=== PATIENT | female | born 1980 | race African-American/Black ===

== ENCOUNTER 2023-01-27 19:52 | Emergency (ER) | payer MEDICAID, OTHER ==
[~2023-01-27] VITALS: Ht 167.6 cm; Wt 77.0 kg
[2023-01-27 19:53] VITALS: BP 156/82; O2SAT 100
[2023-01-27] MEDS ORDERED: DIPHENHYDRAMINE 25MG CAPSULE PO ONE (21:00)
[2023-01-27] MEDS ORDERED: DIPH25CA83 MT (21:05)
[2023-01-27] MEDS ORDERED: HYDR453.3 TP (21:05)
[2023-01-27 22:28] VITALS: PULSE 96; RESP 16; TEMP 98.8
== END 2023-01-27 22:31 | disposition home or self-care (01) ==
LOC: ER 19:52
DX: S40.861A Insect bite (nonvenomous) of right upper arm, initial encounter (principal); I10 Essential (primary) hypertension; W57.XXXA Bitten or stung by nonvenomous insect and other nonvenomous arthropods, initial encounter; Y93.89 Activity, other specified; Y92.89 Other specified places as the place of occurrence of the external cause; Y99.8 Other external cause status
CPT/HCPCS: 99283; 81025; Q0163

== ENCOUNTER 2023-03-02 02:54 | Emergency (ER) | payer OTHER ==
[~2023-03-02] VITALS: Ht 170.2 cm; Wt 91.0 kg
[~2023-03-02 02:54] MED LIST: DIPH25CA83 MT; HYDR453.3 TP
[2023-03-02 03:07] VITALS: O2SAT 98
[2023-03-02 04:00] LABS: BASOPHILS % 0.9 % (0.0-2.0); EOSINOPHILS % 1.6 % (0.0-5.0); HEMATOCRIT. 31.8 % (36.0-48.0); HEMOGLOBIN. 10.1 g/dL (12.0-16.0); LYMPHOCYTES % 28.5 % (20.0-50.0); MEAN CORPUSCULAR HGB CONC 31.7 g/dL (31.0-37.0); MEAN CORPUSCULAR VOLUME 75.7 fL (81.0-99.0); MEAN PLATELET VOLUME 8.5 fl (7.4-10.4); MONOCYTES % 6.8 % (2.0-8.0); NEUTROPHILS % 62.2 % (40.0-76.0); PLATELET 305 x1000/uL (130-400); RED BLOOD CELL COUNT 4.19 mill/uL (4.2-5.4); RED CELL DISTRIBUTION WIDTH 23.2 % (11.6-14.6); WHITE BLOOD COUNT 7.2 x1000/uL (4.5-11.0)
[2023-03-02 04:03] LABS: ADD RBC MORPHOLOGY YES; DIFFERENTIAL COMMENT 1
[2023-03-02 04:15] LABS: ALANINE AMINOTRANSFERASE 26 IU/L (10-49); ALBUMIN 3.7 g/dL (3.2-4.8); ASPARTATE AMINOTRANSFERASE 33 IU/L (<34); BILIRUBIN TOTAL 1.1 mg/dL (0.1-1.0); CALCIUM 8.9 mg/dL (8.7-10.4); CARBON DIOXIDE 28 mEq/L (21-32); CHLORIDE 108 mEq/L (98-107); CREATININE 0.9 mg/dL (0.6-1.0); GLUCOSE 90 mg/dL (70-105); POTASSIUM 3.4 mEq/L (3.5-5.1); PROTEIN TOTAL 7.8 g/dL (6.0-8.3); SODIUM 141 mEq/L (136-145); TROPONIN I HIGH SENSITIVITY 6 ng/L (3.0-34); UREA NITROGEN BLOOD 10 mg/dL (9-23)
[2023-03-02 04:46] LABS: PLATELET ESTIMATE NORMAL
[2023-03-02 04:47] LABS: ANISOCYTOSIS 1+
[2023-03-02] MEDS ORDERED: AZIT250T12 MT (06:34)
[2023-03-02 09:30] VITALS: BP 135/102; PULSE 89; RESP 17
== END 2023-03-02 10:00 | disposition home or self-care (01) ==
LOC: ER 02:54
DX: J18.9 Pneumonia, unspecified organism (principal); I10 Essential (primary) hypertension; Z68.31 Body mass index [BMI] 31.0-31.9, adult; Z88.8 Allergy status to other drugs, medicaments and biological substances
CPT/HCPCS: 36415; 71045; 80053; 83880; 84484; 85025; 85379; 93005; 99285

== ENCOUNTER 2023-04-11 12:18 | Emergency (ER) | payer OTHER ==
[~2023-04-11] VITALS: Ht 170.2 cm; Wt 91.0 kg
[~2023-04-11 12:18] MED LIST changes: +AZIT250T12 MT
[2023-04-11 12:42] VITALS: BP 157/100; PULSE 102; RESP 16; TEMP 98.4; O2SAT 100
[2023-04-11] MEDS ORDERED: TERB30CR8 TP (14:11)
== END 2023-04-11 14:22 | disposition home or self-care (01) ==
LOC: ER 12:18
DX: B35.3 Tinea pedis (principal)
CPT/HCPCS: 99282

== ENCOUNTER 2023-05-10 13:54 | Emergency (ER) | payer MEDICAID, OTHER ==
[~2023-05-10] VITALS: Ht 165.1 cm; Wt 71.0 kg
[~2023-05-10 13:54] MED LIST changes: +TERB30CR8 TP
[2023-05-10 13:59] VITALS: O2SAT 100
[2023-05-10] MEDS ORDERED: PERM60CR4 TP (23:14)
[2023-05-11 00:22] VITALS: BP 136/69; PULSE 89; RESP 20; TEMP 98.5
== END 2023-05-11 00:23 | disposition home or self-care (01) ==
LOC: ER 14:20
DX: B85.2 Pediculosis, unspecified (principal); I10 Essential (primary) hypertension; Z79.899 Other long term (current) drug therapy
CPT/HCPCS: 99281; 99282

== ENCOUNTER 2023-06-30 02:34 | Emergency (ER) | payer OTHER ==
[~2023-06-30] VITALS: Ht 172.7 cm; Wt 91.0 kg
[~2023-06-30 02:34] MED LIST changes: +PERM60CR4 TP
[2023-06-30 03:29] VITALS: BP 162/76; PULSE 101; RESP 14; TEMP 97.9; O2SAT 100
[2023-06-30] MEDS ORDERED: BO1 TP (04:26)
[2023-06-30] MEDS ORDERED: PERM60CR4 TP (04:26)
== END 2023-06-30 04:55 | disposition home or self-care (01) ==
LOC: ER 02:47
DX: L29.9 Pruritus, unspecified (principal); Z98.890 Other specified postprocedural states; Z88.8 Allergy status to other drugs, medicaments and biological substances
CPT/HCPCS: 99282

== ENCOUNTER 2023-07-13 06:38 | Emergency (ER) | payer OTHER ==
[~2023-07-13] VITALS: Ht 167.6 cm; Wt 92.0 kg
[~2023-07-13 06:38] MED LIST changes: +BO1 TP
[2023-07-13 06:43] VITALS: O2SAT 100
[2023-07-13] MEDS ORDERED: PERM60CR4 TP (09:18)
[2023-07-13 09:30] VITALS: BP 144/89; PULSE 84; RESP 19; TEMP 98.8
== END 2023-07-13 09:35 | disposition home or self-care (01) ==
LOC: ER 06:38
DX: B88.0 Other acariasis (principal); Z79.899 Other long term (current) drug therapy
CPT/HCPCS: 99281

== ENCOUNTER 2023-07-17 23:13 | Emergency (ER) | payer OTHER ==
[~2023-07-17] VITALS: Ht 170.2 cm; Wt 91.0 kg
[2023-07-17 23:30] VITALS: BP 198/106; PULSE 72; RESP 14; TEMP 97.9; O2SAT 98
[2023-07-18] MEDS ORDERED: IBUP-2028 MT (02:44)
== END 2023-07-18 03:00 | disposition home or self-care (01) ==
LOC: ER 23:33
DX: M25.571 Pain in right ankle and joints of right foot (principal); R21 Rash and other nonspecific skin eruption; I10 Essential (primary) hypertension; Z79.899 Other long term (current) drug therapy
CPT/HCPCS: 73610; 99283

== ENCOUNTER 2023-08-10 22:41 | Emergency (ER) | payer MEDICAID, OTHER ==
[~2023-08-10] VITALS: Ht 170.2 cm; Wt 75.0 kg
[~2023-08-10 22:41] MED LIST changes: +IBUP-2028 MT
[2023-08-10 23:24] VITALS: BP 151/104; PULSE 94; RESP 16; TEMP 97.6; O2SAT 99
[2023-08-11] MEDS ORDERED: CYCL5TAB MT (03:10)
== END 2023-08-11 03:27 | disposition home or self-care (01) ==
LOC: ER 22:41
DX: M54.9 Dorsalgia, unspecified (principal); I10 Essential (primary) hypertension; Z88.8 Allergy status to other drugs, medicaments and biological substances
CPT/HCPCS: 99283

== ENCOUNTER 2023-08-31 06:40 | Emergency (ER) | payer OTHER ==
[~2023-08-31] VITALS: Ht 172.7 cm; Wt 82.0 kg
[~2023-08-31 06:40] MED LIST changes: +CYCL5TAB MT
[2023-08-31 06:45] VITALS: BP 165/104; PULSE 110; RESP 18; TEMP 98.4; O2SAT 99
== END 2023-08-31 10:20 | disposition left against medical advice (07) ==
LOC: ER 06:46
DX: R21 Rash and other nonspecific skin eruption (principal); I10 Essential (primary) hypertension; Z88.8 Allergy status to other drugs, medicaments and biological substances
CPT/HCPCS: 99281

== ENCOUNTER 2023-08-31 12:43 | Emergency (ER) | payer OTHER ==
[~2023-08-31] VITALS: Ht 170.2 cm; Wt 104.0 kg
[2023-08-31 12:59] VITALS: BP 181/113; RESP 20; TEMP 98; O2SAT 100
[2023-08-31 13:14] VITALS: PULSE 75
[2023-08-31] MEDS: IVERMECTIN 3 MG TABLET PO ONE (13:45)
== END 2023-08-31 17:19 | disposition home or self-care (01) ==
LOC: ER 12:43
DX: R21 Rash and other nonspecific skin eruption (principal); I10 Essential (primary) hypertension; Z88.8 Allergy status to other drugs, medicaments and biological substances
CPT/HCPCS: 99283

== ENCOUNTER 2023-09-16 18:05 | Emergency (ER) | payer OTHER ==
[~2023-09-16] VITALS: Ht 170.2 cm; Wt 95.3 kg
[2023-09-16 18:43] VITALS: BP 162/91; PULSE 94; RESP 20; TEMP 97.8; O2SAT 100
[2023-09-16] MEDS ORDERED: PERM60CR4 TP (19:41)
== END 2023-09-16 21:38 | disposition home or self-care (01) ==
LOC: ER 18:05
DX: S60.562A Insect bite (nonvenomous) of left hand, initial encounter (principal); B86 Scabies; Z88.8 Allergy status to other drugs, medicaments and biological substances; Z98.890 Other specified postprocedural states; W57.XXXA Bitten or stung by nonvenomous insect and other nonvenomous arthropods, initial encounter; Y93.89 Activity, other specified; Y92.89 Other specified places as the place of occurrence of the external cause; Y99.8 Other external cause status
CPT/HCPCS: 99282

== ENCOUNTER 2024-02-05 00:09 | Emergency (ER) | payer MEDICAID, OTHER ==
[~2024-02-05] VITALS: Ht 170.2 cm; Wt 91.0 kg
[2024-02-05 00:16] VITALS: O2SAT 100
[2024-02-05 00:18] VITALS: BP 170/120; PULSE 116; TEMP 98.2; O2SAT 98
[2024-02-05] MEDS ORDERED: LIDO700A15 TP (00:53)
[2024-02-05] MEDS ORDERED: NAPR-1176 MT (00:53)
[2024-02-05] MEDS: KETOROLAC 15MG/ML VIAL IM ONE (01:15)
[2024-02-05 01:30] VITALS: RESP 16
== END 2024-02-05 02:01 | disposition home or self-care (01) ==
LOC: ER 00:09
DX: S40.012A Contusion of left shoulder, initial encounter (principal); M79.602 Pain in left arm; I10 Essential (primary) hypertension; Z88.8 Allergy status to other drugs, medicaments and biological substances; Z79.1 Long term (current) use of non-steroidal anti-inflammatories (NSAID); X58.XXXA Exposure to other specified factors, initial encounter; Y93.89 Activity, other specified; Y92.89 Other specified places as the place of occurrence of the external cause; Y99.8 Other external cause status
CPT/HCPCS: 99284; 73030; 73060; 96372; J1885

== ENCOUNTER 2024-03-18 22:05 | Emergency (ER) | payer MEDICAID, OTHER ==
[~2024-03-18] VITALS: Ht 172.7 cm; Wt 91.0 kg
[~2024-03-18 22:05] MED LIST changes: -CYCL5TAB MT; +CYCL5TAB3 MT; +LIDO700A15 TP; +NAPR-1176 MT
[2024-03-18 22:53] VITALS: TEMP 97.2; O2SAT 99
[2024-03-19] MEDS ORDERED: PERM60CR4 TP (01:13)
[2024-03-19] MEDS ORDERED: BACITRACIN ZINC OINT UDPKT TOP ONE (01:15)
[2024-03-19 02:35] VITALS: BP 178/110; PULSE 85; RESP 16; O2SAT 100
== END 2024-03-19 02:40 | disposition home or self-care (01) ==
LOC: ER 22:05
DX: S90.862A Insect bite (nonvenomous), left foot, initial encounter (principal); S60.562A Insect bite (nonvenomous) of left hand, initial encounter; S60.561A Insect bite (nonvenomous) of right hand, initial encounter; L29.9 Pruritus, unspecified; L84 Corns and callosities; B86 Scabies; I10 Essential (primary) hypertension; Z79.1 Long term (current) use of non-steroidal anti-inflammatories (NSAID); Z88.8 Allergy status to other drugs, medicaments and biological substances; Z59.00 Homelessness unspecified; W57.XXXA Bitten or stung by nonvenomous insect and other nonvenomous arthropods, initial encounter; Y93.89 Activity, other specified; Y92.89 Other specified places as the place of occurrence of the external cause; Y99.8 Other external cause status
CPT/HCPCS: 99282

== ENCOUNTER 2024-04-30 11:21 | Emergency (ER) | payer OTHER ==
[~2024-04-30] VITALS: Ht 170.2 cm; Wt 80.2 kg
[2024-04-30 11:24] VITALS: TEMP 36.8; O2SAT 100
[2024-04-30] MEDS ORDERED: AMOX1TAB16 MT (12:32)
[2024-04-30 12:57] VITALS: BP 170/119; PULSE 82; RESP 18
[2024-04-30] MEDS: IBUPROFEN 600MG TABLET PO ONE (12:57)
[2024-04-30] MEDS: TETANUS, DIPHTHERIA, PERTUSSIS VAC/PF 0.5ML (>10YR OLD) IM ONE (12:58)
== END 2024-04-30 13:26 | disposition home or self-care (01) ==
LOC: ER 11:21
DX: M25.512 Pain in left shoulder (principal); M25.511 Pain in right shoulder; M79.672 Pain in left foot; I10 Essential (primary) hypertension; Z88.8 Allergy status to other drugs, medicaments and biological substances; Z79.899 Other long term (current) drug therapy
CPT/HCPCS: 73030; 90471; 90715; 99283

== ENCOUNTER 2024-10-30 01:58 | Emergency (ER) | payer OTHER ==
[~2024-10-30] VITALS: Ht 172.7 cm; Wt 83.0 kg
[~2024-10-30 01:58] MED LIST changes: +AMOX1TAB16 MT; +LIDO-53 TP; -LIDO700A15 TP
[2024-10-30 02:08] VITALS: O2SAT 100
[2024-10-30 02:12] VITALS: BP 161/108; PULSE 107; RESP 18; TEMP 37.1; O2SAT 98
[2024-10-30] MEDS ORDERED: HYDR453.4 TP (05:48)
[2024-10-30] MEDS ORDERED: PERM60CR4 TP (05:48)
== END 2024-10-30 06:38 | disposition home or self-care (01) ==
LOC: ER 02:18
DX: L25.9 Unspecified contact dermatitis, unspecified cause (principal); R00.0 Tachycardia, unspecified; Z79.1 Long term (current) use of non-steroidal anti-inflammatories (NSAID); Z79.899 Other long term (current) drug therapy; Z88.8 Allergy status to other drugs, medicaments and biological substances
CPT/HCPCS: 99282

== ENCOUNTER 2024-11-04 20:53 | Emergency (ER) | payer OTHER ==
[~2024-11-04] VITALS: Ht 170.2 cm; Wt 73.0 kg
[~2024-11-04 20:53] MED LIST changes: +HYDR453.4 TP
[2024-11-04 20:56] VITALS: TEMP 37; O2SAT 99
[2024-11-04 21:42] VITALS: TEMP 98.6
[2024-11-04] MEDS: ACETAMINOPHEN 325MG TABLET PO SCH (21:42)
[2024-11-04] MEDS: AMLODIPINE 5MG TABLET PO SCH (21:42)
[2024-11-04 22:33] LABS: BASOPHILS % 0.8 % (0.0-2.0); EOSINOPHILS % 2.2 % (0.0-5.0); HEMATOCRIT. 33.2 % (36.0-48.0); HEMOGLOBIN. 10.8 g/dL (12.0-16.0); LYMPHOCYTES % 37.8 % (20.0-50.0); MEAN PLATELET VOLUME 8.5 fl (7.4-10.4); MONOCYTES % 5.0 % (2.0-8.0); NEUTROPHILS % 54.2 % (40.0-76.0); PLATELET 251 x1000/uL (130-400); RED BLOOD CELL COUNT 4.11 mill/uL (4.2-5.4); RED CELL DISTRIBUTION WIDTH 15.2 % (11.6-14.6)
[2024-11-04 22:40] LABS: HCG SCREEN NEGATIVE
[2024-11-04 22:44] LABS: CREATININE 1.0 mg/dL (0.6-1.0); TROPONIN I HIGH SENSITIVITY 5 ng/L (3.0-34); UREA NITROGEN BLOOD 8 mg/dL (9-23)
[2024-11-04 22:45] LABS: ETHANOL BLOOD < 10 mg/dL (<10)
[2024-11-04 22:46] LABS: ASPARTATE AMINOTRANSFERASE 25 IU/L (<34); BILIRUBIN DIRECT 0.2 mg/dL (<=3.0); BILIRUBIN TOTAL 0.6 mg/dL (0.1-1.0); PROTEIN TOTAL 8.6 g/dL (6.0-8.3)
[2024-11-04] MEDS ORDERED: AMLO5TAB88 MT (23:30)
[2024-11-05] MEDS: KETOROLAC 30MG/ML VIAL IM ONE (01:36)
[2024-11-05 01:39] VITALS: BP 150/99; PULSE 80; RESP 16; O2SAT 99
[2024-11-05] MEDS: LIDOCAINE 5% PATCH TOP ONE (01:39)
== END 2024-11-05 01:40 | disposition home or self-care (01) ==
LOC: ER 20:53
DX: R07.89 Other chest pain (principal); I25.2 Old myocardial infarction; I10 Essential (primary) hypertension; R06.02 Shortness of breath; Z88.8 Allergy status to other drugs, medicaments and biological substances; Z79.899 Other long term (current) drug therapy; Z91.148 Patient's other noncompliance with medication regimen for other reason
CPT/HCPCS: 80076; 80048; 80320; 84703; 83880; 85025; 84484; 36415; 71045; 93005; 96372; 99285; J1885; Z7610; G0480

== ENCOUNTER 2024-11-23 22:32 | Emergency (ER) | payer OTHER ==
[~2024-11-23] VITALS: Ht 165.1 cm; Wt 70.0 kg
[~2024-11-23 22:32] MED LIST changes: +AMLO5TAB88 MT
[2024-11-23 22:39] VITALS: BP 172/96; PULSE 100; RESP 16; TEMP 36.7; O2SAT 98
== END 2024-11-24 01:49 | disposition home or self-care (01) ==
LOC: ER 22:32
DX: M79.18 Myalgia, other site (principal); M54.2 Cervicalgia; M79.605 Pain in left leg; M79.604 Pain in right leg; Z53.21 Procedure and treatment not carried out due to patient leaving prior to being seen by health care provider
CPT/HCPCS: 99283

== ENCOUNTER 2024-12-24 03:16 | Emergency (ER) | payer OTHER ==
[~2024-12-24] VITALS: Ht 172.7 cm; Wt 73.0 kg
[~2024-12-24 03:16] MED LIST changes: +PERM60CR20 TP; -PERM60CR4 TP
[2024-12-24 03:23] VITALS: O2SAT 99
[2024-12-24] MEDS: IBUPROFEN 600MG TABLET PO ONE (05:33)
[2024-12-24 06:24] LABS: BASOPHILS % 0.9 % (0.0-2.0); EOSINOPHILS % 1.2 % (0.0-5.0); HEMATOCRIT. 33.7 % (36.0-48.0); HEMOGLOBIN. 11.3 g/dL (12.0-16.0); LYMPHOCYTES % 35.9 % (20.0-50.0); MEAN PLATELET VOLUME 8.4 fl (7.4-10.4); MONOCYTES % 4.8 % (2.0-8.0); NEUTROPHILS % 57.2 % (40.0-76.0); PLATELET 237 x1000/uL (130-400); RED BLOOD CELL COUNT 4.20 mill/uL (4.2-5.4); RED CELL DISTRIBUTION WIDTH 17.4 % (11.6-14.6)
[2024-12-24 06:30] LABS: CREATININE 1.2 mg/dL (0.6-1.0); UREA NITROGEN BLOOD 8.0 mg/dL (9-23)
[2024-12-24 06:36] LABS: HCG SCREEN NEGATIVE
[2024-12-24] MEDS ORDERED: IBUP-1455 MT (07:19)
[2024-12-24] MEDS ORDERED: CEPH500C2 MT (07:19)
[2024-12-24 08:38] VITALS: BP 165/105; PULSE 70; RESP 18; TEMP 36.9; O2SAT 98
== END 2024-12-24 08:37 | disposition home or self-care (01) ==
LOC: ER 03:32
DX: L97.909 Non-pressure chronic ulcer of unspecified part of unspecified lower leg with unspecified severity (principal); L03.119 Cellulitis of unspecified part of limb; I10 Essential (primary) hypertension; I25.2 Old myocardial infarction; Z88.8 Allergy status to other drugs, medicaments and biological substances; Z79.899 Other long term (current) drug therapy
CPT/HCPCS: 36415; 80048; 83605; 84703; 85025; 99285

== ENCOUNTER 2025-01-02 22:47 | Emergency (ER) | payer OTHER ==
[~2025-01-02] VITALS: Ht 172.7 cm; Wt 68.0 kg
[~2025-01-02 22:47] MED LIST changes: +CEPH500C2 MT; +IBUP-1455 MT; +SULF1TAB48 MT
[2025-01-02 22:49] VITALS: O2SAT 97
[2025-01-02 23:04] VITALS: TEMP 36.6
[2025-01-03] MEDS: KETOROLAC 15MG/ML VIAL IV ONE (00:21)
[2025-01-03] MEDS: SODIUM CHLORIDE 0.9% 1,000 ML IV ONE (00:21)
[2025-01-03 00:33] LABS: HCG SCREEN NEGATIVE
[2025-01-03 01:05] LABS: CREATININE 1.1 mg/dL (0.6-1.0)
[2025-01-03 01:06] LABS: UREA NITROGEN BLOOD 17 mg/dL (9-23)
[2025-01-03 01:07] LABS: ASPARTATE AMINOTRANSFERASE 28 IU/L (<34); BILIRUBIN DIRECT 0.2 mg/dL (<=3.0)
[2025-01-03 01:08] LABS: BILIRUBIN TOTAL 0.9 mg/dL (0.1-1.0); PROTEIN TOTAL 9.1 g/dL (6.0-8.3)
[2025-01-03 02:27] LABS: BASOPHILS % 0.8 % (0.0-2.0); EOSINOPHILS % 0.8 % (0.0-5.0); HEMATOCRIT. 36.0 % (36.0-48.0); HEMOGLOBIN. 12.1 g/dL (12.0-16.0); LYMPHOCYTES % 42.6 % (20.0-50.0); MEAN PLATELET VOLUME 9.5 fl (7.4-10.4); MONOCYTES % 5.7 % (2.0-8.0); NEUTROPHILS % 50.1 % (40.0-76.0); PLATELET 305 x1000/uL (130-400); RED BLOOD CELL COUNT 4.41 mill/uL (4.2-5.4); RED CELL DISTRIBUTION WIDTH 17.2 % (11.6-14.6)
[2025-01-03 04:14] VITALS: BP 127/81; PULSE 81; RESP 13; O2SAT 100
[2025-01-03] MEDS ORDERED: IBUP-1455 MT (04:28)
== END 2025-01-03 05:05 | disposition home or self-care (01) ==
LOC: ER 22:47
DX: R10.12 Left upper quadrant pain (principal); I10 Essential (primary) hypertension; I25.2 Old myocardial infarction; F17.200 Nicotine dependence, unspecified, uncomplicated; Z88.8 Allergy status to other drugs, medicaments and biological substances
CPT/HCPCS: 84703; 85025; 36415; 99285; 80076; 80048; 83690; 71045; 74176; 93005; 96361; 96374; J1885; J7030; Z7610; A4606

== ENCOUNTER 2025-01-03 23:39 | Emergency (ER) | payer OTHER ==
[~2025-01-03] VITALS: Ht 172.7 cm; Wt 77.0 kg
[2025-01-03 23:44] VITALS: O2SAT 98
[2025-01-04] MEDS: ACETAMINOPHEN 325MG TABLET PO ONE (00:54)
[2025-01-04 00:57] VITALS: BP 148/100; PULSE 81; RESP 13; TEMP 36.6; O2SAT 100
== END 2025-01-04 01:00 | disposition home or self-care (01) ==
LOC: ER 23:39
DX: S90.861A Insect bite (nonvenomous), right foot, initial encounter (principal); I10 Essential (primary) hypertension; I25.2 Old myocardial infarction; Z79.1 Long term (current) use of non-steroidal anti-inflammatories (NSAID); Z88.8 Allergy status to other drugs, medicaments and biological substances; W57.XXXA Bitten or stung by nonvenomous insect and other nonvenomous arthropods, initial encounter; Y93.89 Activity, other specified; Y92.89 Other specified places as the place of occurrence of the external cause; Y99.8 Other external cause status
CPT/HCPCS: 99283

== ENCOUNTER 2025-01-04 01:59 | Emergency (ER) | payer OTHER ==
[~2025-01-04] VITALS: Ht 170.2 cm; Wt 75.0 kg
[2025-01-04 02:11] VITALS: BP 170/108; PULSE 75; RESP 16; TEMP 37.1; O2SAT 98
[2025-01-04] MEDS: ASPIRIN 81MG TABLET PO ONE (03:29)
== END 2025-01-04 04:23 | disposition home or self-care (01) ==
LOC: ER 01:59
DX: R07.89 Other chest pain (principal); Z79.1 Long term (current) use of non-steroidal anti-inflammatories (NSAID); Z88.8 Allergy status to other drugs, medicaments and biological substances; Z79.899 Other long term (current) drug therapy
CPT/HCPCS: 71045; 99283; Z7610